=== PATIENT | female | born 1985 ===

== ENCOUNTER 2019-01-18 14:51 | Emergency (ER) | payer OTHER ==
--- NOTE | 2019-01-18 15:01 | Event Note ---
ED Screening Note ED Screening Note: pleuritic r side cp with tachy to 120 pos sob recent urti pmh htn obese hpld pre eclampsia off meds This initial assessment/diagnostic orders/clinical plan/treatment(s) is/are subject to change based on patients health status, clinical progression and re- assessment by fellow clinical providers in the ED. Further treatment and workup at subsequent clinical providers discretion. Patient/guardian urged not to elope from the ED as their condition may be serious if not clinically assessed and managed. Initial orders include: 12 lead labs urine C Justo [facility]
[2019-01-18 15:40] LABS: Basophils % (Auto) 0.4 % (0.0-1.8); Eosinophils # (Auto) 0.1 K/mm3 (0.0-0.4); Eosinophils % (Auto) 0.6 % (0.0-4.3); Hemoglobin 13.9 gm/dl (10.1-14.3); Lymphocytes # (Auto) 2.2 K/mm3 (1.2-5.4); Lymphocytes % (Auto) 20.6 % (13.4-35.0); Mean Corpuscular HGB Conc 34 % (30-34); Mean Corpuscular Volume 90 fl (79-97); Monocytes # (Auto) 0.9 K/mm3 (0.0-0.8); Platelet Count 234 K/mm3 (140-440); Red Blood Count 4.58 M/mm3 (3.65-5.03); Red Cell Distribution Width 14.5 % (13.2-15.2)
[2019-01-18 16:04] LABS: Alanine Aminotransferase 17 units/L (7-56); Albumin 4.3 g/dL (3.9-5); BUN/Creatinine Ratio 14; Blood Urea Nitrogen 10 mg/dL (7-17); Calcium 9.4 mg/dL (8.4-10.2); Hemolysis Index 7
--- NOTE | 2019-01-18 17:06 | XRay Report ---
PROCEDURE: Chest. TECHNIQUE: PA and lateral chest radiographs were obtained. HISTORY: Chest pain. COMPARISONS: None. FINDINGS: The heart and mediastinum appear normal. The lungs are grossly clear. There are no pleural effusions. The soft tissues and regional skeleton are unremarkable. IMPRESSION: No evidence of acute disease. This document is electronically signed by Rob Song MD., Jan 18 2019 06:05:04 PM ET
[2019-01-18] MEDS ORDERED: ZOFRAN IV STA (18:10)
[2019-01-18] MEDS ORDERED: MORPHINE IV STA (18:10)
--- NOTE | 2019-01-18 18:43 | Emergency Department Report ---
ED Female [facility] - General Chief complaint: Chest Pain Stated complaint: FOREIGN/CHEST PAIN Time Seen by Provider: 01/18/19 15:00 Source: patient Mode of arrival: Ambulatory Limitations: No Limitations - Related Data Allergies Allergy/AdvReac Type Severity Reaction Status Date / Time aspirin Allergy Unknown Verified 01/18/19 14:53 ibuprofen Allergy Unknown Verified 01/18/19 14:53 ED Review of Systems ROS: Stated complaint: FOREIGN/CHEST PAIN Other details as noted in HPI ED Past Medical Hx - Past Medical History Previous Medical History?: Yes Hx Hypertension: Yes Additional medical history: pre eclampsia, obesity - Surgical History Past Surgical History?: Yes Additional Surgical History: - Social History Smoking Status: Never Smoker Substance Use Type: Alcohol ED Physical Exam - General Limitations: No Limitations General appearance: alert, in no apparent distress - Head Head exam: Present: atraumatic, normocephalic - Eye Eye exam: Present: normal appearance - ENT ENT exam: Present: mucous membranes moist - Neck Neck exam: Present: normal inspection - Respiratory Respiratory exam: Present: normal lung sounds bilaterally. Absent: respiratory distress - Cardiovascular Cardiovascular Exam: Present: regular rate, normal rhythm. Absent: systolic murmur, diastolic murmur, rubs, gallop - GI/Abdominal GI/Abdominal exam: Present: soft, tenderness (the suprapubic region with palpation. No CVA tenderness noted. No masses appreciated.), normal bowel sounds - Extremities Exam Extremities exam: Present: normal inspection, full ROM, normal capillary refill - Back Exam Back exam: Present: normal inspection, full ROM. Absent: CVA tenderness (R), CVA tenderness (L), muscle spasm, paraspinal tenderness, vertebral tenderness - Neurological Exam Neurological exam: Present: alert, oriented X3, CN II-XII intact, normal gait. Absent: motor sensory deficit, reflexes normal - Psychiatric Psychiatric exam: Present: normal affect, normal mood - Skin Skin exam: Present: warm, dry, intact, normal color. Absent: rash ED Course Vital Signs 01/18/19 01/18/19 14:58 17:43 Temperature 97.9 F Pulse Rate 119 H Respiratory 22 Rate Blood Pressure 188/104 142/94 [Right] O2 Sat by Pulse 99 Oximetry ED Medical Decision Making - Lab Data Result diagrams: 01/18/19 15:25 01/18/19 15:25 - Radiology Data Radiology results: report reviewed (chest x-ray shows no acute processes) Critical care attestation.: If time is entered above; I have spent that time in minutes in the direct care of this critically ill patient, excluding procedure time. ED Disposition Disposition: DC-01 TO HOME OR SELFCARE Is pt being admited?: No Does the pt Need Aspirin: No Condition: Stable Instructions: Uterine Fibroids (ED), Chronic Pelvic Pain in Women (ED) Referrals: EVONNE HUSAIN MD [Primary Care Provider] - 3-5 Days
--- NOTE | 2019-01-18 19:35 | Emergency Department Report ---
<KENIA PEREZ - Last Filed: 01/18/19 19:32> ED General Adult HPI - General Chief complaint: Chest Pain Stated complaint: FOREIGN/CHEST PAIN Time Seen by Provider: 01/18/19 15:00 Source: patient Mode of arrival: Ambulatory Limitations: No Limitations - History of Present Illness Initial comments: 33-year-old obese female with a history of hypertension emergency department complaining of a one-day history waxing and waning right-sided sharp chest pain which gets worse with ambulation range of motion. Reports no h emoptysis, hematemesis, hematochezia, no fevers, chills, sweats, no trauma. She reports no long trips, no bruising, swelling or calf pain. No history of any blood clots. No changes in her medications. Location: chest Radiation: non-radiation Severity scale (0 -10): 5 Quality: aching Consistency: constant Improves with: none Worsens with: none Associated Symptoms: chest pain. denies: cough, diaphoresis, loss of appetite, malaise, nausea/vomiting, seizure, weakness Treatments Prior to Arrival: none - Related Data Previous Rx's Medication Instructions Recorded Last Taken Type ALBUTEROL Inhaler (OR & NICU) 2 puff IH QID PRN #1 inhalation 01/18/19 Unknown Rx [Proair] Prednisone [predniSONE 10 mg 10 mg PO .TAPER #1 tab.ds.pk 01/18/19 Unknown Rx (6-Day Pack, 21 Tabs)] traMADol [Ultram 50 MG tab] 50 mg PO Q6HR PRN #12 tablet 01/18/19 Unknown Rx Allergies Allergy/AdvReac Type Severity Reaction Status Date / Time aspirin Allergy Unknown Verified 01/18/19 14:53 ibuprofen Allergy Unknown Verified 01/18/19 14:53 ED Review of Systems Constitutional: denies: chills, fever Eyes: denies: eye pain, eye discharge, vision change ENT: denies: ear pain, throat pain Respiratory: denies: cough, shortness of breath, wheezing Cardiovascular: chest pain. denies: palpitations Endocrine: no symptoms reported Gastrointestinal: denies: abdominal pain, nausea, diarrhea Genitourinary: denies: urgency, dysuria, discharge Musculoskeletal: denies: back pain, joint swelling, arthralgia Skin: denies: rash, lesions Neurological: denies: headache, weakness, paresthesias Psychiatric: denies: anxiety, depression Hematological/Lymphatic: denies: easy bleeding, easy bruising ED Past Medical Hx - Past Medical History Previous Medical History?: Yes Hx Hypertension: Yes Additional medical history: pre eclampsia, obesity - Surgical History Past Surgical History?: Yes Additional Surgical History: - Social History Smoking Status: Never Smoker Substance Use Type: Alcohol - Medications Home Medications: Home Medications Medication Instructions Recorded Confirmed Last Taken Type ALBUTEROL Inhaler (OR & NICU) 2 puff IH QID PRN #1 inhalation 01/18/19 Unknown Rx [Proair] Prednisone [predniSONE 10 mg 10 mg PO .TAPER #1 tab.ds.pk 01/18/19 Unknown Rx (6-Day Pack, 21 Tabs)] traMADol [Ultram 50 MG tab] 50 mg PO Q6HR PRN #12 tablet 01/18/19 Unknown Rx ED Physical Exam - General Limitations: No Limitations General appearance: alert, in no apparent distress - Head Head exam: Present: atraumatic, normocephalic - Eye Eye exam: Present: normal appearance - ENT ENT exam: Present: mucous membranes moist - Neck Neck exam: Present: normal inspection - Respiratory Respiratory exam: Present: normal lung sounds bilaterally, chest wall tenderness (I sat with palpation and range of motion. Pain is alsoa deep breath.). Absent: respiratory distress, accessory muscle use, decreased breath sounds - Cardiovascular Cardiovascular Exam: Present: regular rate, normal rhythm. Absent: systolic murmur, diastolic murmur, rubs, gallop - GI/Abdominal GI/Abdominal exam: Present: soft, normal bowel sounds - Extremities Exam Extremities exam: Present: normal inspection, other (Normal Bilaterally. No Homans Sign, No Cords Sign, No Lower Extremity Edema.) - Back Exam Back exam: Present: normal inspection - Neurological Exam Neurological exam: Present: alert, oriented X3, CN II-XII intact, normal gait - Psychiatric Psychiatric exam: Present: normal affect, normal mood. Absent: anxious, manic - Skin Skin exam: Present: warm, dry, intact, normal color. Absent: rash ED Medical Decision Making - Lab Data Result diagrams: 01/18/19 15:25 01/18/19 15:25 - Medical Decision Making I have a 33-year-old obese hypertensive female with right-sided sharp chest pain and elevated d-dimer obtaining a CT scan of the chest to evaluate for PE will have a MITALI Whitehead to follow up on the test result ED Disposition Clinical Impression: Atypical chest pain Disposition: DC-01 TO HOME OR SELFCARE Condition: Stable Instructions: Uterine Fibroids (ED), Chronic Pelvic Pain in Women (ED), Chest Pain (ED), Costochondritis (ED) Additional Instructions: Please take pain medication in use inhaler and take the prednisone as prescribed. Follow up with her primary care provider in the next 3-5 days for further evaluation. Prescriptions: Prednisone [predniSONE 10 mg (6-Day Pack, 21 Tabs)] 10 mg PO .TAPER #1 tab.ds.pk ALBUTEROL Inhaler (OR & NICU) [Proair] 2 puff IH QID PRN #1 inhalation PRN Reason: Shortness Of Breath traMADol [Ultram 50 MG tab] 50 mg PO Q6HR PRN #12 tablet PRN Reason: Pain Referrals: [facility] MD DON [Primary Care Provider] - 3-5 Days Forms: Work/School Release Form(ED) <YUNIER GIBSON - Last Filed: 01/18/19 21:08> ED General Adult HPI - History of Present Illness Initial comments: 33-year-old obese female comes in complaining of one day history of chest pain as intermittent and worse with deep breath and movement. Patient admits that she has a history of asthma and has not been taking her medication. Patient reports that one week ago she had a cold and was coughing up copious amount of mucus. Patient denies any fever or chills. Onset/Timin -: days(s) ED Review of Systems ROS: Stated complaint: FOREIGN/CHEST PAIN Other details as noted in HPI ED Course Vital Signs 01/18/19 01/18/19 14:58 17:43 Temperature 97.9 F Pulse Rate 119 H Respiratory 22 Rate Blood Pressure 188/104 142/94 [Right] O2 Sat by Pulse 99 Oximetry ED Medical Decision Making - Lab Data Result diagrams: 01/18/19 15:25 01/18/19 15:25 - Radiology Data Radiology results: report reviewed Patient: CYRIL RANGEL MR#: [id number] : 1985 Acct:[id number] Age/Sex: 33 / F ADM Date: 01/18/19 Loc: ED Attending Dr: Ordering Physician: MITALI HUGHES Date of Service: 01/18/19 Procedure(s): CT angio chest Accession Number(s): [id number] cc: MITALI HUGHES PROCEDURE: CT ANGIO CHEST TECHNIQUE: Computerized tomographic angiography of the chest was performed after the IV injection of iodinated nonionic contrast including image processing. The image data was postprocessed using 2-dimensional multiplanar reformatted (MPR) and 3-dimensional (MIP and/or volume rendered) techniques. Automated exposure control, adjustment of mA and/or kV according to patient size, or iterative reconstruction dose optimization techniques were utilized. CT DOSE LENGTH PRODUCT: 845.1 mGycm HISTORY: chest pain , sob and elevated dimer COMPARISONS: None . FINDINGS: Heart and pericardium: Normal. Thoracic aorta: Normal. Pulmonary vasculature: Normal. Lymph nodes: No enlarged thoracic lymph nodes. Lungs: There is focal atelectasis within the lingula, right middle and right lower lobes. There is some right pleural thickening noted at the lung base. Pleural space: No effusion, thickening, or pneumothorax. Musculoskeletal structures: No significant abnormality. Upper abdominal structures: No significant abnormality. IMPRESSION: Atelectasis at the lung bases bilaterally with mild right pleural thickening This document is electronically signed by Hamlet Bell MD., Jan 18 2019 09:07:36 PM ET Transcribed By: TAQUERIA Dictated By: NICOLA BELL MD Electronically Authenticated By: NICOLA BELL MD Signed Date/Time: 01/18/192008 DD/ 99 TD/TT: 01/18/191899 Patient: CYRIL RANGEL MR#: [id number] : 1985 Acct:[id number] Age/Sex: 33 / F ADM Date: 01/18/19 Loc: ED Attending Dr: Ordering Physician: HAILY GARDNER Date of Service: 01/18/19 Procedure(s): XR chest routine 2V Accession Number(s): [id number] cc: HAILY GARDNER Fluoro Time In Minutes: PROCEDURE: Chest. TECHNIQUE: PA and lateral chest radiographs were obtained. HISTORY: Chest pain. COMPARISONS: None. FINDINGS: The heart and mediastinum appear normal. The lungs are grossly clear. There are no pleural effusions. The soft tissues and regional skeleton are unremarkable. IMPRESSION: No evidence of acute disease. This document is electronically signed by Rob Gomez MD., Jan 18 2019 06:05:04 PM ET Transcribed By: SO Dictated By: ROB GOMEZ MD Electronically Authenticated By: ROB GOMEZ MD Signed Date/Time: 01/18/191705 DD/ 50 TD/TT: 01/18/191550 - Medical Decision Making 33-year-old female with a history of hypertension and asthma comes in for intermittent chest pain worse with deep breath and movement. Patient has had a chest x-ray mild elevation of her d-dimer VQ scan was completed which shows mild atelectasis. Discussed the patient I will place her on azithromycin, prednisone taper and an albuterol inhaler as well as Tylenol for pain since patient has a ibuprofen and aspirin allergy. Patient is instructed to follow-up with her primary care provider in the next 3-5 days. Patient verbalized understanding Critical care attestation.: If time is entered above; I have spent that time in minutes in the direct care of this critically ill patient, excluding procedure time. ED Disposition Is pt being admited?: No Does the pt Need Aspirin: No
--- NOTE | 2019-01-18 20:09 | Cat Scan Report ---
PROCEDURE: CT ANGIO CHEST TECHNIQUE: Computerized tomographic angiography of the chest was performed after the IV injection of iodinated nonionic contrast including image processing. The image data was postprocessed using 2-di mensional multiplanar reformatted (MPR) and 3-dimensional (MIP and/or volume rendered) techniques. Au tomated exposure control, adjustment of mA and/or kV according to patient size, or iterative reconstr uction dose optimization techniques were utilized. CT DOSE LENGTH PRODUCT: 845.1 mGycm HISTORY: chest pain , sob and elevated dimer COMPARISONS: None . FINDINGS: Heart and pericardium: Normal. Thoracic aorta: Normal. Pulmonary vasculature: Normal. Lymph nodes: No enlarged thoracic lymph nodes. Lungs: There is focal atelectasis within the lingula, right middle and right lower lobes. There is so me right pleural thickening noted at the lung base. Pleural space: No effusion, thickening, or pneumothorax. Musculoskeletal structures: No significant abnormality. Upper abdominal structures: No significant abnormality. IMPRESSION: Atelectasis at the lung bases bilaterally with mild right pleural thickening This document is electronically signed by Hamlet Simons MD., Jan 18 2019 09:07:36 PM ET
[2019-01-18 20:36] VITALS: BP 161/96
== END 2019-01-18 21:14 | disposition home or self-care (01) ==
LOC: ED 14:51
DX: R07.89 Other chest pain (principal); I10 Essential (primary) hypertension; E66.9 Obesity, unspecified; Z88.6 Allergy status to analgesic agent
CPT/HCPCS: 36415; 71046; 71275; 80053; 83690; 85025; 85379; 93005; 93010; 96374; 96375; 99284; Q9967